=== PATIENT | male | born 1955 | race Asian ===

== ENCOUNTER 2023-03-30 07:20 | Emergency (ER) | payer OTHER ==
[~2023-03-30] VITALS: Ht 175.3 cm; Wt 78.0 kg
[2023-03-30] MEDS ORDERED: IBUPROFEN 400MG TABLET PO ONE (07:45)
[2023-03-30 07:57] VITALS: BP 136/89
[2023-03-30] MEDS ORDERED: IBUP-2030 PO (08:52)
== END 2023-03-30 09:39 | disposition home or self-care (01) ==
LOC: ER 07:20
DX: S52.91XA Unspecified fracture of right forearm, initial encounter for closed fracture (principal); W01.0XXA Fall on same level from slipping, tripping and stumbling without subsequent striking against object, initial encounter; Y93.89 Activity, other specified; Y92.89 Other specified places as the place of occurrence of the external cause; Y99.8 Other external cause status
CPT/HCPCS: 29105; 73070; 73090; 99284